=== PATIENT | male | born 1995 | race African-American/Black ===

== ENCOUNTER 2018-11-07 00:07 | Emergency (ER) | payer OTHER ==
[~2018-11-07] VITALS: Ht 167.6 cm; Wt 64.9 kg
[2018-11-07] MEDS ORDERED: IBUPROFEN 400400 M2 PO (00:30)
[2018-11-07 00:49] VITALS: BP 169/103
== END 2018-11-07 00:50 | disposition home or self-care (01) ==
LOC: ER 00:07
DX: S93.491A Sprain of other ligament of right ankle, initial encounter (principal); F17.210 Nicotine dependence, cigarettes, uncomplicated; W01.0XXA Fall on same level from slipping, tripping and stumbling without subsequent striking against object, initial encounter; Y93.51 Activity, roller skating (inline) and skateboarding; Y92.89 Other specified places as the place of occurrence of the external cause; Y99.8 Other external cause status

== ENCOUNTER 2020-03-14 17:53 | Inpatient (IN) | payer OTHER ==
[~2020-03-14] VITALS: Ht 152.4 cm; Wt 66.2 kg
[~2020-03-14 17:53] MED LIST: IBUPROFEN 400400 M2 PO
[2020-03-14 17:54] VITALS: BP 171/110
[2020-03-14 18:28] LABS: HEMATOCRIT 43.4 % (42.0-52.0); HEMOGLOBIN 14.9 gm/dL (14.0-18.0); MCHC 34.4 g/dL (28.0-37.0); PLATELET COUNT 137 thou/uL (150-400); RBC 4.53 mil/uL (4.50-6.00); RDW 14.1 % (10.5-14.5); WBC 4.5 thou/uL (4.0-11.0)
[2020-03-14 18:34] LABS: ANION GAP 17 mmol/L (7-16); BUN 7 mg/dL (7-18); CALCIUM 9.4 mg/dL (8.5-10.1); CHLORIDE 96 mmol/L (98-107); CO2 23 mmol/L (21-32); CREATININE 1.2 mg/dL (0.7-1.3); GLUCOSE 181 mg/dL (74-106); POTASSIUM 3.2 mmol/L (3.5-5.1); SODIUM 136 mmol/L (136-145)
[2020-03-14 18:44] LABS: ALBUMIN 4.4 g/dL (3.4-5.0); DIRECT BILIRUBIN 0.4 mg/dL (<0.1-0.2); MAGNESIUM 1.2 mg/dL (1.8-2.4); PHOSPHORUS 2.5 mg/dL (2.5-4.9); SGOT 266 U/L (15-37); SGPT 204 U/L (30-65); TOTAL BILIRUBIN 1.7 mg/dL (0.2-1.0); TOTAL PROTEIN 8.4 g/dL (6.4-8.2); TROPONIN-I <0.06 ng/mL (<0.06)
[2020-03-14 18:56] LABS: ABSOLUTE NEUTROPHILS 2.8 thou/uL (1.4-8.2); PLATELET ESTIMATE NORMAL
[2020-03-14 20:53] VITALS: BP 171/110
[2020-03-14 21:00] VITALS: BP 145/87
--- NOTE | 2020-03-14 21:02 | NUR ---
ED NURSE CALLED TO GIVE REPORT, WAS TOLD THE NURSE IS NOT THERE.
[2020-03-15] VITALS (10 sets, daily range): BP systolic 128–163; BP diastolic 93–113
--- NOTE | 2020-03-15 01:02 | NUR ---
PT NEW ADMIT FROM ER YESTERDAY, ABOUT 2129 FOR ETOH WITHDRAWAL. AOX4. VSS. LUNGS CLEAR. PT REPORTS DRINKING DAILY AND ALSO SMOKING DAILY. INITIAL EKG STRIP SHOWS SR, PT DENIES ANY NAUSEA VOMITING, OR CHEST PAIN. PT SCORED A 4 ON ALCOHOL WITHDRAWAL ASSESSMENT WITH TREMORS THE ONLY EVIDENT SYMPTOMS. PT ORIENTED TO ROOM, CALLING SYSTEM, AND ALSO BED PADDED SEIZURE PRECAUTIONS. PT ADMITTED IN A STABLE CONDITION. USES URINAL AND CALLS APPROPRIATELY. WITH CONTINUE TO MONITOR, ASSESS, AND FOLLOW POC. ALL OTHER ASSSESSMENTS DOCUMENTED.
[2020-03-15 05:23] LABS: CALCIUM 8.8 mg/dL (8.5-10.1); CREATININE 0.8 mg/dL (0.7-1.3)
[2020-03-15 05:27] LABS: POTASSIUM 2.9 mmol/L (3.5-5.1)
--- NOTE | 2020-03-15 08:34 | EKG ---
[facility] [place] [address] ELECTROCARDIOGRAM REPORT Name: ALEXANDRU LUA Room #: 206-P ADM IN M.R.#: [id number] Admission: 03/14/20 Attend Phys: Solo Belcher Discharge: Date of : [birth year] Report #: [id number] THIS REPORT FOR: cc: BENITO - Valerie family physician/PCP BENITO - Valerie family physician/PCP Willian Prieto MD [facility] THIS REPORT FOR: //name// [facility] ED Test Date: 2020-03-14 Test Time: 19:06:29 Pat Name: ALEXANDRU LUA Department: Room: [facility] Gender: M Vehicle And Equipment Cleaner: LELE : 1995 Requested By: Moi Villavicencio Order Number: [id number] MD: Willian Prieto Measurements Intervals [place] Rate: 91 P: 18 MO: 212 QRS: 27 QRSD: 96 T: 29 QT: 356 QTc: 439 Interpretive Statements Sinus rhythm Prolonged MO interval Borderline ST elevation, anterolateral leads Baseline wander in lead(s) V6 No previous ECG available for comparison Electronically Signed On 03-15-2020 8:32:44 CDT by Willian Prieto [email or web address] <ELECTRONICALLY SIGNED> By: Willian Prieto MD, FACC 03/15/20 0832 1906 1906 Willian Prieto MD, [facility]IN [facility] /EPI
--- NOTE | 2020-03-15 11:44 | NUR ---
Received awake on bed. Due medications given as prescribed, able to swallow meds w/o difficulty. On room air. Vital signs stable. On regular diet- tolerating well; no nausea, no vomiting and no abdominal pain noted. On heart monitoring- SR-ST at times; no complaints of chest pain, heaviness or crushing sensation noted. On seizure precautions. CIWA monitoring done. With NS + 20meq KCL at 125cc/hr, infusing well at R AC. Assisted in ADLs. No complaints of pain. Pt able to talk to his most of the day. A+Ox4. To continue monitoring patient.
--- NOTE | 2020-03-15 16:20 | NUR ---
spoke with patient via phone. Patient admits with seizure?ETOH abuse. SP with patient regarding ETOH use he reports approx a pint a day. Patient reports he does work but at this time due to COVID at home but not working from home. Patient and interest in ETOH options. Alerted to patient informaton in his dc orders. Alerted many options of outpatient and online support. Patient recentive to discussion of resouces and options. Alerted to patient he needs to call as they complete assessments with patient over the phone.
[2020-03-16] VITALS (36 sets, daily range): BP systolic 128–184; BP diastolic 80–117
[2020-03-16 00:07] LABS: GLYCOHEMOGLOBIN (HGB A1C) 5.1 % (4.8-5.6)
--- NOTE | 2020-03-16 01:59 | NUR ---
PT CIWA SCORE ELEVATED FROM MNOC SCORE 2 HRS PREVIOUSLY, PT REFUSING MEDS, DID AGREE TO LEAVE IN IV AND HEART MONITOR, HR ST LOW 100'S, BP STILL ELEVATED AFTER PRN HYDRALAZINE GIVEN @159/113, NO FEVER, NO SWEATS, PT RESTING QUIETLY, WILL MONITOR CLOSELY PER PPOC.
--- NOTE | 2020-03-16 05:05 | NUR ---
PT AWOKE APPROXIMATLY 0400, PULLED OUT IV, OUT OF BED WITH ALARM GOING OFF MET AT THE DOOR, SAID HE JUST NEEDED TO GO FOR A WALK, 2ND RN WALKED WITH PT AND HE RAN DOWN THE HART SECURITY CALLED AND PT HAD NEW IV PUT IN IN ER AND RETURNED TO ROOM PRN ATIVAN GIVEN, VSS HR ST, NO C/O PAIN, PT RESTING QUIETLY IN ROOM. WILL CON'T TO MONITOR PER PPOC.
--- NOTE | 2020-03-16 07:16 | NUR ---
ARRIVED INTO UNIT W ABEL MONTERO.MEN & SECURITY AT PT'S BEDSIDE.PT IN 4 PT LOCK DOWN RESTAINTS,REARING UP FROM BED,SLIDING DOWN,TRYING TO BITE THRU RESTRAINTS,ALMOST TIPPED OVER BED...-VW ONE ARM GOTTEN FREE DESPITE EFFORTS OF SECURITY.SPOKE W BHAVNA,STUDENT LIAISON OFFICER-ORDERS NOTED.--VW PRECEDEX STARTED, ATIVAN GIVEN W/O ANY EFFECT, GEODAN GIVEN & PT SLEEPING BUT DOES WAKE SPONT,REARS UP,WILD. PT TACHYCARDIC-VW 'S MARLA & FRANCISCA REFUSE TO INTUBATE PT AT THIS TIME.--VW
--- NOTE | 2020-03-16 07:24 | NUR ---
PT BECAME MORE AND MORE CONFUSED, PRN MEDS NOT WORKING, PT REFUSING IV TO BE RESTARTED, TELEMETRY OFF, SECURITY CALLED PT BECAME BELIGERANT THOUGHT WE WERE TRYING TO HURT HIM UNABLE TO REORIENT PT, NOT FOLLOWING DIRECTIONS, Lupillo PALMER NOTIFIED OF WORSENING CONDITION ORDERS RECEIVED TO TRANSFER TO ICU REPORT GIVEN TO RN AND PT PLACED IN ROOM 248.
[2020-03-16 09:34] LABS: CREATININE 0.5 mg/dL (0.7-1.3); MAGNESIUM 1.1 mg/dL (1.8-2.4)
[2020-03-16 10:11] LABS: CALCIUM 6.8 mg/dL (8.5-10.1); POTASSIUM 2.5 mmol/L (3.5-5.1)
[2020-03-16 11:40] LABS: AMP/METHAMP Negative (Negative); BARBITURATES Negative (Negative); BENZODIAZEPINES POSITIVE (Negative); COCAINE Negative (Negative); METHADONE Negative (Negative); OPIATES Negative (Negative); PCP Negative (Negative)
--- NOTE | 2020-03-16 14:45 | NUR ---
Patient's , Jose called in and updated on her 's status.
--- NOTE | 2020-03-16 15:15 | NUR ---
SW reviewed chart and spoke with attending physician. Pt was transferred to ICU from earlier today. Pt placed in restraints. Pt with hx of ETOH use. CHAU is following to assist as needed with discharge planning.
--- NOTE | 2020-03-16 16:55 | NUR ---
PATIENT SITTING UP IN BED, TALKING IN A LOUD VOICE AND SCOOTING SELF TO THE BOTTOM OF THE BED, REASSURANCE GIVEN AND ATTEMPTED TO REORIENT TO PLACE AND SITUATION, CALLING STAFF LIERS, CUSSING AT STAFF. STATES THAT HE WANTS TO KILL THE BITCH. SECURITY NOTIFIED. PATIENT CONTINUED TO SCOOT DOWN IN THE BED. KNOCKING OVER THE IV POLE WITH 4 PUMPS ON IT. IV LINE NOTED TO BE INTACT. SECURITY HERE TO ASSIST WITH APPLICATION OF RESTRAINTS TO BILATERAL WRIST. GRABBED THIS NURSES UNIFORM TOP, PINCHING THIS NURSE AND HAND WAS RELEASED WITH THE ASSISTANCE OF THE SECURITY GUARDS. STATES THAT HE IS GOING TO KILL PEOPLE. ATIVAN GIVEN, VERSED DRIP AND PRECEDEX INCREASED.
--- NOTE | 2020-03-16 17:22 | NUR ---
PATIENT NOW SLEEPING, BP ELEVATED AND HYDRALAZINE GIVEN PER ORDER.
--- NOTE | 2020-03-16 17:40 | NUR ---
PATIENT'S SANDRA CALLED IN AND UPDATED TO PATIENT'S STATUS. STATED THAT SHE WANTED TO BE CALLED SOON HE HAS AN OUTBURST HE IS ALL ALONE AND SHE CANNOT BE WITH HIM. REASSURED THAT WE WOULD CALL HER SOON POSSIBLE BUT WE NEEDED TO CARE FOR HER AND PROVIDE A SAFE ENVIROMENT FOR HIM.
[2020-03-16 18:51] LABS: MAGNESIUM 2.2 mg/dL (1.8-2.4); POTASSIUM 4.2 mmol/L (3.5-5.1)
--- NOTE | 2020-03-16 19:00 | NUR ---
Patient resting at present. Remains on Versed and Precedex. Ativan given for CIWA of 13. Serum potassium and Mag levels drawn, awaiting results. Dr Belcher informed of patient status, medications reviewed with him. Orders noted. Monitor showing NSR. Diastolic BP remains elevated. Reese patent. Will continue to monitor. Slow progressing towards outcome goals.
--- NOTE | 2020-03-16 20:26 | NUR ---
Spoke with pt's and updated on POC. Pt upset re: lack of communication. Stated that she now felt much more informed and would appreciate providers taking the time to explain things to her. Reassured her that I would pass this along. Pt released from violent restraints at 1999 with first assessment. Precedex at 1.4 mcg/kg/hr, Versed at 2 mg/hr and pt still arouses when this junior underwriter is in the room. Resps even and unlabored, no seizure activity noted. Side rails padded, bed alarm activated for patient safety.
[2020-03-17] VITALS (59 sets, daily range): BP systolic 100–140; BP diastolic 69–98
--- NOTE | 2020-03-17 05:08 | NUR ---
Pt has slept intermittently through the noc on Precedex 1.4 mcg/kg/hr, Versed 3 mg/hr and prn Haldol & Ativan per EMAR. Pt easily arouses and quickly becomes agitated, confused and combative. Resps even/non labored on RA, NSR per tele. Adequate UOP per butler. 4-point soft restraints in place for patient safety. Pt's updated through the noc. Not progressing towards discharge goals at this time.
[2020-03-17 06:44] LABS: HEMATOCRIT 34.4 % (42.0-52.0); MCH 29.1 pg (26.0-34.0); MCHC 32.8 g/dL (28.0-37.0); RBC 3.88 mil/uL (4.50-6.00); RDW 15.3 % (10.5-14.5)
[2020-03-17 06:55] LABS: HEMOGLOBIN 11.3 gm/dL (14.0-18.0); MCV 88.7 fL (80.0-100.0)
[2020-03-17 06:57] LABS: CALCIUM 8.7 mg/dL (8.5-10.1); CREATININE 0.8 mg/dL (0.7-1.3); MAGNESIUM 1.6 mg/dL (1.8-2.4); POTASSIUM 3.8 mmol/L (3.5-5.1); TOTAL BILIRUBIN 0.5 mg/dL (0.2-1.0); TOTAL PROTEIN 6.7 g/dL (6.4-8.2)
--- NOTE | 2020-03-17 09:57 | NUR ---
ASSESSMENTS AND INTERVENTIONS DOCCUMENTED. RN ASSUMED CARE AT 0700. PATIENT ON VERSED AND PRECEDEX GTT. CALLING, SOUNDED UPSET BECAUSE NO ONE HAS BEEN KEEPING HER UPDATED. DOES NOT BELIVE PATIENT IS WITHDRAWLING FROM ALCOHOL, THAT PATIENT ALWAYS TREMMORS AND HAS SWEATS. BELIEVES THAT THE PATIENT HAD AN HYPERTENSIVE EPISODE THAT CAUSED HIM TO SEIZE. STATING " HE HAD SHRIMP FROM [employer] THAT HAS A LOT OF SODIUM AND HE ATE NOODLES". WANTING TO SPEAK WITH PHSYCIAN. DR YAÑEZ TO BE PAGED TO CALL .
--- NOTE | 2020-03-17 16:51 | NUR ---
SW reviewed chart and spoke with attending physician. Pt remains in restraints. Psych and neuro following. Pt is in restraints. Pt's family to meet with physician this afternoon around 1600 to discuss plan of care. No weekend discharge planned. [employer] to follow up with pt/family as pt does not have health insurance. SW is following to assist as needed with discharge planning.
--- NOTE | 2020-03-17 21:00 | NUR ---
PT WOKE UP AGITATED,IMPULSIVE,SWEATING AND ALSO HALLUCINATING,CIWR SCORE TO 33,PATIENT ON SEDATION PER ORDERS.TREATED PER CIWR PROTOCOL WITH LORAZEPAM AND HALDOL.VSS,TACHYPNEIC.O2 SAT AT 100% N RA.PT FINALLY WAS ABLE TO CALM DOWN AND FALL ASLEEP. CALLED AND UPDATED WITH CARE.WILL CONT TO MONITOR PER POC.
[2020-03-18] VITALS (39 sets, daily range): BP systolic 114–166; BP diastolic 56–110
[2020-03-18 04:06] LABS: CALCIUM 8.3 mg/dL (8.5-10.1); CREATININE 0.8 mg/dL (0.7-1.3)
[2020-03-18 05:13] LABS: POTASSIUM 4.2 mmol/L (3.5-5.1)
--- NOTE | 2020-03-18 18:21 | NUR ---
NEW ORDER OBTAINED TO MANAGE ELEVATED HR. WILL GIVE MED AND NOTIFY NIGHT NURSE OF ORDERS TO FOLLOW IF MEDICATION INEFFECTIVE.
--- NOTE | 2020-03-18 18:44 | NUR ---
ASSUMED CARE APPROX 0700. PT SEDATED AT START OF SHIFT, BUT EASILY AROUSABLE. ONCE PT WAS WOKE HE WAS ALERT AND ORIENTED TO SELF AND TIME. AND MOTHER UPDATED ON STATUS. PT HAS SPOKEN TO SEVERAL TIMES THIS SHIFT. CIWA MANAGED PER ORDERS. BECAME FEBRILE AND DR. YAÑEZ NOTIFIED. FEVER TREATED. PT HAS NOT BEEN COMBATIVE OR AGGRESSIVE THIS SHIFT. RESTRAINTS REMOVED AT 1700. ELEVATED BP TREATED PER ORDERS. PT RESTING COMFORTABLY.
[2020-03-19] VITALS (26 sets, daily range): BP systolic 125–1141; BP diastolic 57–123
--- NOTE | 2020-03-19 05:53 | NUR ---
ASSUMED PT CARE AT 1900. HR IN 130S AND SUSTAINING. DAY NURSES RELAYED INFO REGARDING CALLING THE HOSPITALIST LEATHER SCRUBBER AT 2030 IF HR IS STILL SUSTAINING IN 130S. JASPREET SPENCER CALLED REGARDING HR AND HTN AT 2100 ONETIME ORDER OF METOPROLOL RX AND ADM. HR AND BP CAME DOWN. TO 100S. PT WAS ON VERSED GTT AND UNRESTRAINED AT THE TIME WHEN CARE WAS ASSUMED. HE WAS FOLLOWING COMMANDS AND WAS COMPLIANT WITH CARE INSTRCUTIONS. ATIVAN AND HALDOL GIVEN PRN WITH CIWA SCORE DONE Q2-Q4 DEPENDING ON SCORE. AROUND 04OO, PT BECAME BELIGERENT, ALMOST KICKED RN IN THE ABDOMEN, WAS ADAMANT THAT HE WANTED TO LEAVE TO GO SEE HIS SON, WAS YELLING INAPPROPRIATE WORDS AT RN ALSO STATED "YOU HAVE BEEN TRYING TO KILL ME, I AM GOING TO KILL YOU." SECURITY NOTIFIED OF PATIENT'S BEHAVIOR, PREDEX STARTED ON PT AT 1.4MCG. PT FINALLY FELL ASLEEP AT 0605AM. PT IS CURRENTLY STABLE, WILL CONTINUE TO CLOSELY MONITOR.
--- NOTE | 2020-03-19 11:52 | NUR ---
A LEFT UPPER ARM MIDLINE WAS PLACED FOR ADDITIONAL IV ACCESS PER HOSPITAL POLICY. LINE WAS TRIMMED TO 15CM AND ADVANCED WITHOUT DIFFICULTY. RELEASED FOR USE
--- NOTE | 2020-03-19 12:15 | NUR ---
PT HR DROPPING TO LOW 30S. STAT EKG OBTAINED. TITRTATING DOWN ON PRECEDEX. DR. PARI JEWELL. PT REMAINS SEDATED.
--- NOTE | 2020-03-19 12:45 | NUR ---
DR. YAÑEZ PAGED AGAIN WITH NO RESPONSE. PRECEDEX TURNED OFF DUE TO BRADYCARDIA. PT STARTING TO WAKE UP. VERSED IS ALSO OFF.
--- NOTE | 2020-03-19 13:15 | NUR ---
DR. ESPINOSA HERE. REPORTED BRADYCARDIA WITH PRECEDEX. PT BELLIGERENT NOW, CRAWLING OUT OF BED AND ATTEMPTING TO KICK STAFF. VERSED RESTARTED AT 10MG/HR PER DR ESPINOSA. ALSO SAID TO USE ATIVAN PER THE [facility] PROTOCOL.
--- NOTE | 2020-03-19 13:42 | NUR ---
ASSUMED CARE AT CHANGE OF SHIFT. PT SEDATED WITH DRIPS ON VERSED AND PRESIDX. LIBRIUM PO ORDERS BY DR YAÑEZ. HEART RATE DROPPING IN THE 30'S TITRATED VERSED AND PRECEDX DOWN THEN STOPPED APPROXIMATELY 1300. PT AWAKENED AND BECAME COMBATIVE WITH NURSING STAFF, SECURITY CALLED IN. DR ESPINOSA BEDSIDE ORDERED VERSED BE RESTARTED AND GIVE LORAZAPAM PER CIWA SCORE. PT REFUSED TO TAKE LIBRIUM. CHARGE NURSE BEDSIDE ASSISTING WITH PT ORRIENTATION AND UPDATED PT'S SIGNIFICANT OTHER ON STATUS.PT SPOKE WITH SIGNIFICANT OTHER. PT REMAINS IN BILATERAL WRIST RESTRAINTS.
--- NOTE | 2020-03-19 16:30 | NUR ---
DR. ESPINOSA CALLED. RE PT CRAWLING OUT OF BED, KICKING ETC DESPITE VERSED AT 10M/HR AND ATIVAN AND HALDOL. ORDERS GIVEN TO RESTART PRECEDEX AND INCREASE VERSED TO 15-20MG/HR NEEDED. STATES TO ALSO USE HALDOL AND ATIVAN ORDERED.
--- NOTE | 2020-03-19 20:32 | NUR ---
ATTEMPTED VACATION SEDATION BY HALTING VERSED AND PRECEDEX. PT RAPIDLY STARTING PULLING AT ITEMS, ATTEMPTING TO GET OUT OF BED, CUSSING AND YELLING. UNABLE TO REDIRECT THAT HE WAS IN THE HOSPITAL. "I GOT TO GET GOING. BABY!!!" "GET THE FUCK OUT OF MY HOUSE." ONLY ORIENTED TO NAME. NOTED HEART RATE IN THE 30'S WITH PRECEDEX AND 0.8 MCG/KG/MIN AND VERSED AT 10MG/HR. (PRECEDEX JUST DECREASED FROM 1MCG/KG/MIN APPROX 1 HOUR EARLIER BY DAY RN. HAVE NOW RESUMED PRECEDEX AT 0.6MCG/KG/MIN AND VERSED TO 8MG/HR.
[2020-03-20] VITALS (42 sets, daily range): BP systolic 131–204; BP diastolic 67–120
[2020-03-20 04:47] LABS: CALCIUM 8.7 mg/dL (8.5-10.1); CREATININE 0.7 mg/dL (0.7-1.3); POTASSIUM 3.7 mmol/L (3.5-5.1)
--- NOTE | 2020-03-20 06:24 | NUR ---
PT MAKING SLOW PROGRESS TOWARDS GOALS. UPON INITIAL ASSESSMENT PT ONLY ORIENTED TO HIS NAME. VERSED GTT AT 10MG/HR AT START OF SHIFT. TITRATED DOWNWARD AND REACHED GTT TO "OFF" BY 2335HRS. PRECEDEX GTT AT 1.4MCG/KG/HR AT THE START, GRADUALLY DECREASING TO JUST 0.6MCH/KG/HR. THIS AM, PT WAS ORIENTED TO NAME AND "[place]." EARLY IN THE NIGHT PT WOULD CUSS AND SCREAM AT STAFF PERFORMING CARE, EVEN SEEMING GUARDED AND FEARFUL OF STAFF. THIS AM, PT IS MORE CALM AND BETTER ABLE TO BE REDIRECTED. HE DID SAY "ASK ME ANYTHING, I'M BETTER." WHEN ASKED "WHY ARE YOU HEAR IN THE HOSPITAL?" HE REPLIED WITH "ALCOHOL." HE WAS THEN ASKED "CAN YOU BE MORE SPECIFIC?" HE REPLIED WITH "YEA, I WAS ABUSING IT." SEE CIWA SCORES, ATIVAN BOLUS DOSES PER SCORE. NOTED TO BE BRADYCARDIC AT TIMES WHEN ASLEEP WITH IRREGULAR HEART RHYTHM AND RATE IN 30'S. EXACT RHYTHM IS DIFFICULT TO ASCERTAIN BUT ITS BRADYCARDIC, NARROW COMPLEX WITH IRREGULAR R-R INTERVALS AT TIMES AND OCCASIONAL p WAVES WITH NO FOLLOWING QRS COMPLEX. THIS RHYTHM WILL CEASE AND BE FAR MORE REGULAR WITH PT BEING AWAKE. ALSO NOTED PT HAS FREQUENT APNEA EPISODES THAT CAN BE OBSERVED BY VIEWING THE RESPIRATORY TRACING AND DIRECT OBSERVATION. PT CAN OSCILLATE FROM TACHYPNEA, TO APNEA AND BACK WITH INTERMITTENT SNORING. SPOKE WITH WHOM COMFIRMED THAT SHE HAS BEEN WITNESS TO IRREGULAR BREATHING PATTERN WHEN HE SLEEPS.
--- NOTE | 2020-03-20 08:22 | EKG ---
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: ZACH : 1995 Requested By: Solo Belcher Order Number: [id number] MD: Willian Prieto Measurements Intervals [place] Rate: 33 P: 31 VT: 189 QRS: 20 QRSD: 96 T: 40 QT: 561 QTc: 416 Interpretive Statements Sinus bradycardia with Mobitz type I heart block Nonspecific T wave abnormality Compared to ECG 03/14/2020 19:06:29 Mobitz type I heart block is now present Electronically Signed On 03-20-2020 8:20:26 CDT by Willian Prieto [email or web address] <ELECTRONICALLY SIGNED> By: Willian Prieto MD, [facility] 03/20/20 0820 1227 1227 Willian Prieto MD, [facility] /EPI
--- NOTE | 2020-03-20 09:43 | NUR ---
Nutrition: Pt NPO x 5 days in ICU. Nsg reports requiring sedation and not responding well when off. Combative. Plans to address diet advance today, otherwise RD would rec considering change IVFs to PPN til able to take po.
--- NOTE | 2020-03-20 16:28 | NUR ---
SW reviewed chart and spoke with nursing and attending physician. Pt remains sedated and in restraints. In ICU. Psych/neuro following. Pt with hx of ETOH abuse. SW is following to assist as needed with discharge planning.
--- NOTE | 2020-03-20 18:30 | NUR ---
PATIENT HAS SLEPT ON AND OFF THROUGH THE DAY. DC/ED VERSED AND REDUCED PRECEDEX TO 0.4ML/HR. PATIENT IS SUFFICIENTLY AWAKE TO MAKE CALLS TO AND ALSO CONVERSE WITH NURSE. PT HAS BEEN PLEASANT THROUGH THE DAY. BP HAS REMAINED HIGH WITH NUMEROUS TREATMENT. WILL CONT WITH PLAN OF CARE.
--- NOTE | 2020-03-20 18:41 | EEG ---
[facility] [place] [address] ELECTROENCEPHALOGRAM Name: ALEXANDRU LUA Room #: [facility] IN M.R.#: [id number] Admission: 03/14/20 Attend Phys: Solo Pretty Discharge: Date of : 89 Report #: [id number] THIS REPORT FOR: //name// CC: BENITO physician/PCP Solo Belcher DATE OF SERVICE: 03/18/2020 This patient is being evaluated for the possibility of seizure. EEG is done to evaluate the patient for seizure. EEG was done by placing the electrode by standard 10-20 system of electrode placement. Both referential and sequential montages were used for recording. Background activity in this patient's EEG is about 9 Hz and 30 microvolt. This patient became drowsy and that is associated with bilateral slowing and vertex sharp waves. Photic stimulation is unremarkable. Throughout the record, no active epileptiform activity was noticed. IMPRESSION: This patient's EEG is intermixed with some theta range slowing on both sides. That has a nonspecific finding, which can occur with effect of psychotropic medication, dementia, encephalopathy, etc. Clinical correlation is recommended. <ELECTRONICALLY SIGNED> By: Senthil Ji MD 03/20/20 1841 1138 1154 Senthil Ji MD /nt
[2020-03-21] VITALS (35 sets, daily range): BP systolic 140–218; BP diastolic 74–118
--- NOTE | 2020-03-21 04:23 | NUR ---
PATIENTS CARES WERE ASSUMED AT SHIFT CHANGE. PATIENT WAS ASSESSED AND MEDS WERE PASED. RESTRAINTS WERE CHECK 2Q HOURS AND DOCUMENTED. PATIENT DID HAVE AN EPISODE OF A HEART RAT OF 155 AND HE HAD SEVER TREMORS. A SEDATIVE FROM THE DEC WAS GIVEN ALONG WITH A SEVERAL HOT BLANKETS BECAUSE HE STATED HE WAS VERY COLD. ROURLY ROUND DONE THE BED IS IN A LOW AND LOCKED POSITION.
--- NOTE | 2020-03-21 12:57 | NUR ---
ASSUMED CARE @ 0700 03/21/20, PT ASSESSMENTS AND VSS COMPLETE PER ICU PROTOCOL AND DOCUMENTED. DR YAÑEZ HERE TO ROUND THIS AM, INFORMED ABOUT SBP IN 180'S OVER THE NIGHT, NEW ORDERS RECIEVED. PT STILL ON PRECEDEX GTT,AXOX4, PT ABLE TO FOLLOW COMMANDS , RESTRAINTS DC'D @ 1147, NO COMPLICATIONS NOTED. SANDRA LUA UPDATED ON STATUS AFTER CODE VERIFIED. WILL CONT TO MONITOR.
--- NOTE | 2020-03-21 15:34 | NUR ---
SW reviewed chart and spoke with attending physician. Pt is out of restraints. Psych following. SW is following to assist as needed with discharge planning.
[2020-03-22] VITALS (25 sets, daily range): BP systolic 114–174; BP diastolic 60–113
[2020-03-22 05:26] LABS: CALCIUM 8.5 mg/dL (8.5-10.1); CREATININE 0.7 mg/dL (0.7-1.3); MAGNESIUM 1.2 mg/dL (1.8-2.4); POTASSIUM 3.3 mmol/L (3.5-5.1); TOTAL BILIRUBIN 0.5 mg/dL (0.2-1.0)
--- NOTE | 2020-03-22 05:26 | NUR ---
SLEPT PART OF SHIFT. CIWA 4-9 THIS SHIFT WITH ATIVAN GIVEN PRN. TURNS SELF IN BED WITHOUT PROBLEMS. A/O X4, MILD ANXIETY AND REMAINS COOPERATIVE. TREMORS LESS THIS AM, BUT REMAINS SHIVERING AND COLD. STATES HAS BEEN SHIVERING AND COLD FOR A COUPLE OF DAYS. WARM BLANKET APPLIED. WORKING ON GOALS AND PLAN OF CARE FOR NOC. PROGRESSING SLOWLY TOWARDS DISCHARGE GOALS FROM ICU. DENIES COMPLAINTS OF PAIN. TALKED WITH FAMILY AND FRIENDS PER CELLPHONE ON AND OFF THIS SHIFT. CONTINUE TO ASSES CLOSELY.
[2020-03-22 05:27] LABS: ALBUMIN 2.5 g/dL (3.4-5.0); TOTAL PROTEIN 6.3 g/dL (6.4-8.2)
--- NOTE | 2020-03-22 09:05 | NUR ---
PATIENT DISCONNECTED FROM PRECEDEX PRIOR TO THIS SHIFT. DROWSY FOR FIRST PART OF THIS MORNING. AOX4 AT THIS TIME. PATIENT SITTING UPRIGHT IN BED, FINISHED BREAKFAST AND SPEAKING WITH SPOUSE ON HIS CELL PHONE. BEHAVIOR IS APPROPRIATE AND PLEASANT. PT CONTINUES TO EXHIBIT TREMORS, CEWA SCORE=4 AT THIS TIME. PT STATES HE WOULD LIKE TO GET UP AND MOVE AROUND MORE THIS SHIFT, PT ORDERS IN PLACE. PATIENT USES OWN STRENGTH TO MOVE SELF AROUND IN BED, BECOMES TACHYCARDIC WITH ACTIVITY, HR 116, TOLERATES WELL. NO S/S OF DISTRESS NOTED. FALL PRECAUTIONS REMAIN IN PLACE, PATIENT CALLS FOR ASSIST APPROPRIATELY.
--- NOTE | 2020-03-22 16:25 | NUR ---
CHAU reviewed chart and spoke with nursing and attending physician. Pt is progressing towards goals for discharge. Discharge is anticipated for Friday. PT/OT ordered today to evaluate pt. CHAU spoke with pt via phone. Psych had seen pt earlier today and states pt is interested in inpt ETOH treatment. Pt is alert/orientated x 4. Pt states he is interested in looking at programs with [facility]. CHAU faxed info to the ICU to provide to pt. CHAU is following to assist as needed with discharge planning.
[2020-03-23] VITALS (20 sets, daily range): BP systolic 120–174; BP diastolic 67–119
--- NOTE | 2020-03-23 03:20 | NUR ---
ASSUMED CARE OF PATIENT AT 1900. ALERT, PLEASANT, COOPERATIVE. REMAINS OFF PRECEDEX. UP TO CHAIR FOR BATH, ABLE TO AMBULATE TO COMMODE IN BEDROOM WITH THIS RN AND GAITBELT. STILL UNSTEADY, BUT NOT WEAK. ALCOHOL CESSATION WELL TOBACCO CESSATION DISCUSSED. EDUCATION ABOUT BLOOD PRESSURE AND HEART RATE GIVEN, VERBALIZED UNDERSTANDING. PROGRESSING WELL TOWARDS POC GOALS.
--- NOTE | 2020-03-23 11:33 | NUR ---
PATIENT OUT OF BED, INDEPENDENTLY PERFORMING HYGIENE CARE WITH HELP FROM OT. HR INCREASED TO 163bpm WITH ACTIVITY. ON ASSESSMENT PATIENT STATES "I FEEL FINE", NO VISIBLE DISTRESS NOTED; DENIES FEELING SOA OR DIZZINESS. WILL CONTINUE TO MONITOR.
--- NOTE | 2020-03-23 14:43 | NUR ---
CHAU reviewed chart and spoke with attending physician. Pt remains in ICU. May transfer out when a bed becomes available. Discharge home is anticipated for tomorrow. CHAU faxed [facility] and [facility] handbook to nursing unit to provide to pt. CHAU spoke with pt via phone to provide update. Pt has not received ppwk yet. Pt is aware that he will discharge home tomorrow. SW offered to update his . Pt states she is aware of the plan at this time. CHAU is following to assist as needed with discharge planning.
[2020-03-24 00:13] VITALS: BP 129/59
[2020-03-24 03:54] VITALS: BP 129/63
--- NOTE | 2020-03-24 04:55 | NUR ---
PT TRANSFERRED FROM ICU YESTERDAY FROM ICU. ALERT AND ORIENTED. STILL ON CIWA PROTOCAL, SCORING 4-5. DENIES HALLUSINATION, OR SWEATING. VISIBLE SHAKINESS AND ALSO WHILE ARMS EXTENDED. ATIVAN PO AND HALDOL GIVEN X 1 EACH. PT GETS TACHY WITH ACTIVITIES SUSTAINING IN 120s AT SOME POINT. WELL SERVICE PUMP EQUIPMENT OPERATOR NOTIFIED, NO NEW ORDERS RECEIVED. PT ANTICIPATES TO DC TODAY. WILL CONTINUE TO FOLLOW POC.
[2020-03-24 07:15] VITALS: BP 113/53
[2020-03-24] MEDS ORDERED: VITAMIN B-1100 M2 PO (08:43)
[2020-03-24] MEDS ORDERED: CHLORDIAZEPOXID25 M1 PO (08:43)
[2020-03-24] MEDS ORDERED: CATAPRES0.1 MG PO (08:43)
[2020-03-24 10:13] VITALS: BP 138/97
--- NOTE | 2020-03-24 10:37 | NUR ---
ASSUMED CARE AT SHIFT CHANGE, ALERT AND ORIENTED X4. DENIES ANY DISCOMFORT. S/B MARJARA DISCHARGE AND MEDICATION INSTRUCTIONS GIVEN TO PATIENT AND HE VERBALIZED UNDERSTANDING. PATIENT DISCHAGED HOME.
== END 2020-03-24 10:42 | disposition home or self-care (01) | DRG 897 ==
LOC: ER 17:53 → EROBS 20:27 → ICU 20:27 → 2N 21:19 → ICU 03-16 06:36 → 2N 03-23 17:46
PROVIDERS: Emergency Medicine; Internal Medicine Pulmonary Disease; Nurse Practitioner Family; ADMIT Hospitalist
PROC: 05HC33Z Insertion of Infusion Device into Left Basilic Vein, Percutaneous Approach (ICD-10-PCS; principal; 2020-03-19)
DX: F10.231 Alcohol dependence with withdrawal delirium (principal); E87.2 Acidosis; E87.1 Hypo-osmolality and hyponatremia; I10 Essential (primary) hypertension; F17.210 Nicotine dependence, cigarettes, uncomplicated; R73.9 Hyperglycemia, unspecified; R74.0 Nonspecific elevation of levels of transaminase and lactic acid dehydrogenase [LDH]; E87.6 Hypokalemia; F41.9 Anxiety disorder, unspecified; Z71.6 Tobacco abuse counseling; Z79.899 Other long term (current) drug therapy
CPT/HCPCS: 10078; 10081; 27000

== ENCOUNTER 2020-04-11 19:37 | Emergency (ER) | payer OTHER ==
[~2020-04-11] VITALS: Ht 170.1 cm; Wt 71.2 kg
[~2020-04-11 19:37] MED LIST changes: +CATAPRES0.1 MG PO; +CHLORDIAZEPOXID25 M1 PO; +VITAMIN B-1100 M2 PO
[2020-04-11] MEDS ORDERED: CHLORDIAZEPOXID25 M1 PO (20:27)
[2020-04-11 20:56] VITALS: BP 164/107
== END 2020-04-11 20:57 | disposition home or self-care (01) ==
LOC: ER 19:37
DX: F41.9 Anxiety disorder, unspecified (principal); Z76.0 Encounter for issue of repeat prescription; F17.210 Nicotine dependence, cigarettes, uncomplicated; Z98.890 Other specified postprocedural states; Z79.899 Other long term (current) drug therapy

== ENCOUNTER 2020-09-20 12:03 | Emergency (ER) | payer OTHER ==
[~2020-09-20] VITALS: Ht 167.6 cm; Wt 68.0 kg
[2020-09-20 13:35] LABS: ABSOLUTE NEUTROPHILS 5.8 thou/uL (1.4-8.2); BASOPHILS 0.5 % (0.0-2.0); EOSINOPHILS 0.4 % (0.0-3.0); HEMATOCRIT 42.4 % (42.0-52.0); HEMOGLOBIN 14.6 gm/dL (14.0-18.0); LYMPHOCYTES 7.5 % (24.0-44.0); MCH 34.1 pg (26.0-34.0); MCHC 34.4 g/dL (28.0-37.0); MCV 99.1 fL (80.0-100.0); MONOCYTES 8.9 % (1.0-8.0); PLATELET COUNT 209 thou/uL (150-400); POLYS 82.7 % (36.0-66.0); RBC 4.28 mil/uL (4.50-6.00); RDW 13.8 % (10.5-14.5)
--- NOTE | 2020-09-20 13:46 | EKG ---
[facility] [place] [address] ELECTROCARDIOGRAM REPORT Name: ALEXANDRU LUA Room #: PRE M.R.#: [id number] Admission: Attend Phys: Discharge: Date of : 89 Report #: [id number] THIS REPORT FOR: cc: BENITO Padilla family physician/PCP BENITO Padilla family physician/PCP Omkar Rajput MD [facility] ~ THIS REPORT FOR: //name// [facility] ED Test Date: 2020-09-20 Test Time: 12:13:08 Pat Name: ALEXANDRU LUA Department: Room: Gender: M Highway Design Engineer: [facility] : 1995 Requested By: Sonja Barrios Order Number: [id number] MD: Omkar Rajput Measurements Intervals [place] Rate: 130 P: 77 WA: 139 QRS: 43 QRSD: 81 T: 15 QT: 301 QTc: 443 Interpretive Statements Sinus tachycardia Aberrant complex Baseline wander in lead(s) II,aVF Compared to ECG 03/19/2020 12:27:24 Ventricular premature complex(es) now present Sinus bradycardia no longer present T-wave abnormality no longer present Electronically Signed On 09-20-2020 13:46:31 CHIEF ENGINEER PRODUCTION by Omkar Rajput [email or web address] <ELECTRONICALLY SIGNED> By: Omkar Rajput MD, FACC 09/20/20 1346 1213 1213 Omkar Rajput MD, [facility] /EPI
[2020-09-20 13:54] LABS: CALCIUM 9.5 mg/dL (8.5-10.1); CREATININE 0.9 mg/dL (0.7-1.3); POTASSIUM 3.9 mmol/L (3.5-5.1)
[2020-09-20 14:00] LABS: ALBUMIN 4.2 g/dL (3.4-5.0); TOTAL BILIRUBIN 1.6 mg/dL (0.2-1.0); TOTAL PROTEIN 8.3 g/dL (6.4-8.2)
[2020-09-20 14:04] LABS: MAGNESIUM 0.9 mg/dL (1.8-2.4)
[2020-09-20] MEDS ORDERED: ATIVAN1 M1 PO (15:36)
[2020-09-20 16:01] VITALS: BP 138/82
[2020-09-20 16:21] LABS: AMP/METHAMP Negative (Negative); BARBITURATES Negative (Negative); BENZODIAZEPINES POSITIVE (Negative); COCAINE Negative (Negative); METHADONE Negative (Negative); OPIATES Negative (Negative); PCP Negative (Negative)
== END 2020-09-20 16:04 | disposition left against medical advice (07) ==
LOC: ER 12:03
PROVIDERS: Physician Assistant
DX: F10.239 Alcohol dependence with withdrawal, unspecified (principal); R56.9 Unspecified convulsions; E83.42 Hypomagnesemia; F17.210 Nicotine dependence, cigarettes, uncomplicated; Z79.899 Other long term (current) drug therapy; Y90.0 Blood alcohol level of less than 20 mg/100 ml

== ENCOUNTER 2021-01-23 10:27 | Emergency (ER) | payer OTHER ==
[~2021-01-23] VITALS: Ht 170.2 cm; Wt 65.8 kg
[~2021-01-23 10:27] MED LIST changes: +ATIVAN1 M1 PO
[2021-01-23] MEDS ORDERED: ATIVAN1 M1 PO (13:09)
[2021-01-23 13:10] LABS: ABSOLUTE NEUTROPHILS 5.3 thou/uL (1.4-8.2); BASOPHILS 0.4 % (0.0-2.0); EOSINOPHILS 0.1 % (0.0-3.0); HEMATOCRIT 36.2 % (42.0-52.0); HEMOGLOBIN 12.9 gm/dL (14.0-18.0); LYMPHOCYTES 9.7 % (24.0-44.0); MCH 34.7 pg (26.0-34.0); MCHC 35.5 g/dL (28.0-37.0); MCV 97.7 fL (80.0-100.0); MONOCYTES 9.1 % (1.0-8.0); POLYS 80.7 % (36.0-66.0); RDW 13.8 % (10.5-14.5); WBC 6.5 thou/uL (4.0-11.0)
[2021-01-23 13:24] LABS: ALBUMIN 3.3 g/dL (3.4-5.0); CREATININE 0.8 mg/dL (0.7-1.3); TOTAL BILIRUBIN 3.7 mg/dL (0.2-1.0); TOTAL PROTEIN 6.9 g/dL (6.4-8.2)
[2021-01-23 13:25] LABS: POTASSIUM 2.5 mmol/L (3.5-5.1)
[2021-01-23 13:27] LABS: PLATELET ESTIMATE DECREASED
[2021-01-23 13:28] LABS: LARGE PLATELETS OCCASIONAL; PLATELET COUNT 66 thou/uL (150-400)
[2021-01-23] MEDS ORDERED: KLOR-CON M2020 MEQ PO (13:53)
[2021-01-23 14:07] VITALS: BP 159/96
--- NOTE | 2021-01-23 15:59 | EKG ---
[address] [address] [place] [address] ELECTROCARDIOGRAM REPORT Name: ALEXANDRU LUA Room #: REG LUPE Hicks#: [id number] Admission: 01/23/21 Attend Phys: Discharge: Date of : [birth year] Report #: [id number] [facility] ED Test Date: 2021-01-23 Test Time: 13:41:47 Pat Name: ALEXANDRU LUA Department: Room: Gender: M Emergency Department Clinician: : 1995 Requested By: Omkar Sanchez Order Number: [id number] MD: Omkar Rajput Measurements Intervals [place] Rate: 101 P: -62 [place]: 120 QRS: 21 QRSD: 97 T: 97 QT: 418 QTc: 542 Interpretive Statements Sinus or ectopic atrial tachycardia RSR' in V1 or V2, right VCD or RVH Nonspecific T abnrm, anterolateral leads Prolonged QT interval Compared to ECG 09/20/2020 12:13:08 Right ventricular hypertrophy now present RSR' in V1 or V2 now present Prolonged QT interval now present Sinus tachycardia no longer present Aberrant conduction of supraventricular beat(s) no longer present Electronically Signed On 01-23-2021 15:59:12 CDT by Omkar Rajput [email or web address] <ELECTRONICALLY SIGNED> By: Omkar Rajput MD, [facility] 01/23/21 1559 1341 1341 Omkar Rajput MD, [facility] /EPI
== END 2021-01-23 14:07 | disposition home or self-care (01) ==
LOC: ER 10:27
PROVIDERS: Emergency Medicine
DX: F10.139 Alcohol abuse with withdrawal, unspecified (principal); R56.9 Unspecified convulsions; E87.6 Hypokalemia; F17.210 Nicotine dependence, cigarettes, uncomplicated; Z98.890 Other specified postprocedural states

== ENCOUNTER 2021-04-11 11:50 | Inpatient (IN) | payer OTHER ==
[~2021-04-11] VITALS: Ht 170.2 cm; Wt 66.7 kg
[~2021-04-11 11:50] MED LIST changes: +KLOR-CON M2020 MEQ PO
[2021-04-11 11:55] VITALS: BP 156/105
--- NOTE | 2021-04-11 12:10 | NUR ---
PT IS ALERT AND ORIENTED X4, PT STATES HE NORMALLY DRINKS ABOUT X1 PINT OF VODKA DAILY. PT HAS BEEN ADMITTED FOR SEIZURES IN THIS HOSPITAL IN THE PAST. PT STATES HE IS NOT CURRENTLY ON ANY MEDICATION. PT SPOUSE STATES THE ONLY THING PT HAD FOR HIS SEIZURES AT HOME WAS A PRESCRIPTION WRITTEN FROM THE LAST ED VISIT WHICH HE HAS RAN OUT OF. PT DENIES PAIN. NEUROLOGICALLY INTACT AT THIS TIME. CALL LIGHT ENCOURAGED TO USE
[2021-04-11 12:25] LABS: ABSOLUTE NEUTROPHILS 3.4 thou/uL (1.4-8.2); BASOPHILS 1.3 % (0.0-2.0); EOSINOPHILS 0.8 % (0.0-3.0); HEMATOCRIT 43.3 % (42.0-52.0); HEMOGLOBIN 14.7 gm/dL (14.0-18.0); LYMPHOCYTES 28.5 % (24.0-44.0); MCH 33.6 pg (26.0-34.0); MCV 98.9 fL (80.0-100.0); MONOCYTES 14.1 % (1.0-8.0); POLYS 55.3 % (36.0-66.0); RBC 4.37 mil/uL (4.50-6.00); RDW 14.4 % (10.5-14.5); WBC 6.1 thou/uL (4.0-11.0)
[2021-04-11 12:43] LABS: CALCIUM 8.8 mg/dL (8.5-10.1); CREATININE 1.2 mg/dL (0.7-1.3); POTASSIUM 3.1 mmol/L (3.5-5.1)
[2021-04-11 12:47] LABS: ALBUMIN 3.9 g/dL (3.4-5.0); DIRECT BILIRUBIN 0.6 mg/dL (<0.1-0.2); TOTAL BILIRUBIN 1.6 mg/dL (0.2-1.0); TOTAL PROTEIN 8.1 g/dL (6.4-8.2)
--- NOTE | 2021-04-11 13:30 | NUR ---
ED PROVIDER GOING OVER CARE PLAN WITH PT AND PT SPOUSE TO BE ADMITTED TO THE HOSPITAL AT THIS TIME
[2021-04-11 14:10] LABS: PLATELET COUNT 155 thou/uL (150-400)
--- NOTE | 2021-04-11 16:50 | NUR ---
REPORT GIVEN TO RICHARD RITTER AT THIS TIME. PT TAKEN TO ED ROOM 23 AT THIS TIME
[2021-04-11 17:56] VITALS: BP 136/95
[2021-04-11 18:08] VITALS: BP 130/94
--- NOTE | 2021-04-11 18:48 | NUR ---
ADMISSION NOTE: PT ADMIOTTED AT 1830. PT ALERT AND ORIENTED X4, DENIES ANY CHEST PAIN, NAUSEA AND VOMITTING. ON ROOM AIR, NO SIGNS OF DISTRESS. STEMHOLE BORER AND TOPPER IN PLACED, SR. SEIZURE PRECAUTIONS IN PLACE. ADMISSION HISTORY AND EDUCATION COMEPLETED. PM NURSE DARCY MADE AWARE ABOUT COMPLETEDING REST OF ADMISSION. FALL PRECAUTIONS IN P[LACE. CONSENTS SIGNED BY PT, ORIENTED TO ROOM. PT DENIES ANY NEEDS CHRISTIANO.
[2021-04-11 23:35] VITALS: BP 133/89
[2021-04-12 08:41] VITALS: BP 159/119
--- NOTE | 2021-04-12 09:53 | NUR ---
CARE TAKEN OVER THIS AM, PT ALERT AND ORIENTED X4, DENIES PAIN NAUSEA AND VOMITTING. PT STATED HAVING DIARRHEA. CONTINUES TREMORS AND SOME ANXIETY. ANTIVAN GIVEN PER ORDER. SEIZURE PRECAUTIONS IN PLACE. ON ROOM AIR, N SIGNS OF DISTRESS. PT UP TO BATHROOM. DENIES ANY NEEDA AT THE MOMENT WILL CONTINUE TO MONITOR
[2021-04-12 10:00] VITALS: BP 140/106
[2021-04-12 13:38] LABS: URINE BILIRUBIN NEGATIVE (Negative); URINE BLOOD NEGATIVE (Negative); URINE CLARITY CLEAR; URINE COLOR YELLOW; URINE GLUCOSE-RANDOM* NEGATIVE (Negative); URINE KETONES TRACE (Negative); URINE LEUKOCYTES-REFLEX NEGATIVE (Negative); URINE NITRITE-REFLEX NEGATIVE (Negative); URINE PROTEIN (DIPSTICK) NEGATIVE (Negative); URINE SPECIFIC GRAVITY <= 1.005 (1.005-1.035)
[2021-04-12 13:43] LABS: AMP/METHAMP Negative (Negative); BARBITURATES Negative (Negative); BENZODIAZEPINES Negative (Negative); COCAINE Negative (Negative); METHADONE Negative (Negative); OPIATES Negative (Negative); PCP Negative (Negative)
[2021-04-12 15:18] VITALS: BP 134/101
--- NOTE | 2021-04-12 16:12 | NUR ---
INITIAL ASSESSMENT: Received consult. SW reviewed chart and spoke with nursing and attending physician. Pt was admitted from home due to seizure activity. Pt with hx of daily ETOH use (~1 pint of vodka). Psych consulted. SW met with pt's at bedside. Introduced role of SW. Pt was taking a shower during time of SW visit. SW discussed options for treatment with pt's . Pt's states that pt has tried to follow up with [facility] but has been unsuccessful with follow up appts. Pt's state pt would want to do outpatient treatment. Pt does not currently have health insurance. Pt's PCP is Dr. Sonia Rabago at [facility]. Discharge home is anticipated for tomorrow. SW to provide pt with list of ETOH treatment options for review. Pt's states that they will review options and contact the agency of choice for an appointment. Plan is for pt to discharge home when medically stable. SW is following to assist as needed with discharge planning.
[2021-04-12 20:45] VITALS: BP 154/117
[2021-04-13] VITALS: BP 148/102
[2021-04-13 03:29] VITALS: BP 175/125
--- NOTE | 2021-04-13 04:46 | NUR ---
NO COMPLAINT VOICED BY PT OVERNIGHT. CIWA SCORE 2-4. SLIGHTLY TREMULOUS HANDS OBSERVED. DENIED ANY OTHER SYMPTOMS OF ETOH W/D. CONTINUE TO MONITOR.
[2021-04-13 06:31] LABS: ALBUMIN 3.1 g/dL (3.4-5.0); CALCIUM 8.7 mg/dL (8.5-10.1); CREATININE 0.8 mg/dL (0.7-1.3); MAGNESIUM 1.6 mg/dL (1.8-2.4); PHOSPHORUS 4.6 mg/dL (2.5-4.9); TOTAL BILIRUBIN 0.8 mg/dL (0.2-1.0); TOTAL PROTEIN 6.8 g/dL (6.4-8.2)
[2021-04-13 07:12] VITALS: BP 155/113
[2021-04-13] MEDS ORDERED: CLONIDINE HCL0.3 M3 PO (08:58)
[2021-04-13] MEDS ORDERED: KEPPRA 500 MG500 M1 PO (08:58)
[2021-04-13 09:01] VITALS: BP 155/113
--- NOTE | 2021-04-13 09:14 | NUR ---
DISCHARGE NOTE: SW reviewed chart and spoke with nursing. Pt has been discharged. SW spoke with pt via phone regarding options for ETOH treatment. Pt is ready to discharge. Pt is agreeable with info and will discuss with his . SW encouraged pt to call agencies to discuss payment options, as pt does not have health insurance. Pt verbalized understanding. Pt provided with [facility] and [facility] list of ETOH outpatient treatment options for review. Contact info for ETOH treatment facilities also placed in pt's discharge summary. Pt's family to provide transportation home. No additional SW needs identified at this time, but is available to assist should needs arise.
--- NOTE | 2021-04-13 09:27 | NUR ---
D/C ORDERS IN, IV AND TELE D/C . DISCHARGE INSTRUCTIONS, NEW MEDS AND RESOURCES ABOUT ALCOHOL CESSATION PROVIDED TO PT. PT STATED UNDERSTANDING. DENIES ANY QUESTIONS.
[2021-04-13] MEDS ORDERED: CLONIDINE HCL0.1 MG PO (09:50)
== END 2021-04-13 09:32 | disposition home or self-care (01) | DRG 897 ==
LOC: ER 11:50 → EROBS 17:43 → 3W 18:14
PROVIDERS: Nurse Practitioner; ADMIT Hospitalist; ATTEND Hospitalist
DX: F10.139 Alcohol abuse with withdrawal, unspecified (principal); E83.42 Hypomagnesemia; E87.6 Hypokalemia; F10.10 Alcohol abuse, uncomplicated; F17.210 Nicotine dependence, cigarettes, uncomplicated
CPT/HCPCS: 10879

== ENCOUNTER 2021-08-01 20:04 | Inpatient (IN) | payer OTHER ==
[~2021-08-01] VITALS: Ht 170.2 cm; Wt 67.1 kg
[~2021-08-01 20:04] MED LIST changes: +CLONIDINE HCL0.1 MG PO; +CLONIDINE HCL0.3 M3 PO; +KEPPRA 500 MG500 M1 PO
[2021-08-01 20:06] VITALS: BP 147/127
[2021-08-01 20:56] LABS: HEMOGLOBIN 13.3 gm/dL (14.0-18.0); MCH 33.7 pg (26.0-34.0); MCHC 34.3 g/dL (28.0-37.0); MCV 98.3 fL (80.0-100.0); RBC 3.96 mil/uL (4.50-6.00); RDW 14.9 % (10.5-14.5); WBC 6.2 thou/uL (4.0-11.0)
[2021-08-01 21:06] LABS: URINE BILIRUBIN 1+ (Negative); URINE BLOOD TRACE (Negative); URINE CLARITY CLEAR; URINE COLOR YELLOW; URINE GLUCOSE-RANDOM* NEGATIVE (Negative); URINE KETONES 1+ (Negative); URINE LEUKOCYTES-REFLEX TRACE (Negative); URINE NITRITE-REFLEX NEGATIVE (Negative); URINE PROTEIN (DIPSTICK) 2+ (Negative); URINE SPECIFIC GRAVITY 1.015 (1.005-1.035); URINE UROBILINOGEN >= 8.0 E.U./dl (0.2-1.0)
[2021-08-01 21:07] LABS: ICTOTEST (BILI CONFIRMATORY) Negative (Negative)
[2021-08-01 21:11] LABS: AMP/METHAMP Negative (Negative); BARBITURATES Negative (Negative); BENZODIAZEPINES Negative (Negative); COCAINE Negative (Negative); METHADONE Negative (Negative); OPIATES Negative (Negative); PCP Negative (Negative)
[2021-08-01 21:18] LABS: ALBUMIN 3.7 g/dL (3.4-5.0); CALCIUM 8.2 mg/dL (8.5-10.1); CREATININE 1.2 mg/dL (0.7-1.3); TOTAL BILIRUBIN 2.1 mg/dL (0.2-1.0); TOTAL PROTEIN 7.8 g/dL (6.4-8.2)
[2021-08-01 21:20] LABS: BACTERIA-REFLEX 1-9 Few /HPF (None Seen); CRYSTALS None Seen /LPF (None Seen); SQUAMOUS 0-3 Few /LPF (0-3); URINE RBC 1-2 Rare /HPF (NONE SEEN); URINE WBC-REFLEX 0-5 Rare /HPF (0-5)
[2021-08-01 21:21] LABS: HYALINE CASTS 0-3 Few /LPF (None Seen)
[2021-08-01 21:27] LABS: MAGNESIUM 0.8 mg/dL (1.8-2.4); POTASSIUM 2.4 mmol/L (3.5-5.1)
[2021-08-01 23:33] VITALS: BP 149/99
--- NOTE | 2021-08-01 23:41 | NUR ---
PT'S [phone]
[2021-08-01 23:59] VITALS: BP 124/88; BP 150/103
[2021-08-02 00:45] VITALS: BP 138/97
[2021-08-02 04:10] VITALS: BP 126/80
[2021-08-02 06:25] LABS: HEMATOCRIT 36.2 % (42.0-52.0); HEMOGLOBIN 12.6 gm/dL (14.0-18.0); MCH 34.5 pg (26.0-34.0); MCHC 34.7 g/dL (28.0-37.0); MCV 99.2 fL (80.0-100.0); RBC 3.64 mil/uL (4.50-6.00); RDW 14.7 % (10.5-14.5); WBC 5.7 thou/uL (4.0-11.0)
[2021-08-02 06:59] LABS: CALCIUM 7.9 mg/dL (8.5-10.1); CREATININE 0.7 mg/dL (0.7-1.3)
[2021-08-02 07:03] LABS: POTASSIUM 2.5 mmol/L (3.5-5.1)
[2021-08-02 07:08] LABS: ALBUMIN 3.3 g/dL (3.4-5.0); DIRECT BILIRUBIN 0.7 mg/dL (<0.1-0.2); TOTAL BILIRUBIN 2.2 mg/dL (0.2-1.0); TOTAL PROTEIN 6.9 g/dL (6.4-8.2)
--- NOTE | 2021-08-02 07:26 | EKG ---
[address] [place] [address] ELECTROCARDIOGRAM REPORT Name: ALEXANDRU LUA Room #: 358-P ADM IN M.R.#: [id number] Admission: 08/01/21 Attend Phys: Tyrone Coleman MD Discharge: Date of : [birth year] Report #: [id number] [facility] ED Test Date: 2021-08-01 Test Time: 20:51:53 Pat Name: ALEXANDRU LUA Department: Room: [facility] Gender: M Plant Attendant: daniel : 1995 Requested By: Campbell Ortega Order Number: [id number] MD: Omkar Rajput Measurements Intervals [place] Rate: 85 P: -21 IN: 166 QRS: 27 QRSD: 128 T: 66 QT: 392 QTc: 467 Interpretive Statements Sinus rhythm Nonspecific intraventricular conduction delay Compared to ECG 01/23/2021 13:41:47 Intraventricular conduction delay now present Right ventricular hypertrophy no longer present Prolonged QT interval no longer present Electronically Signed On 08-02-2021 7:26:15 CDT by Omkar Rajput [email or web address] <ELECTRONICALLY SIGNED> By: Omkar Rajput MD, [facility] 08/02/21725 50 50 Omkar Rajput MD, FAC /EPI
[2021-08-02 07:28] VITALS: BP 133/91
--- NOTE | 2021-08-02 07:36 | NUR ---
PT ADMITTED TO ROOM 358 AT APPROXIMATELY 00:30 FROM ED. ADMISSION ASSESSMENTS COMPLETED, SEE CHARTING. PT ADMITTED FOR SEIZURES AND ETOH WITHDRAWAL. PT PLEASANT AND COOPERATIVE THROUGHOUT THE NIGHT WITH NO CONCERNS VOICED. DENIES PAIN, N/V, HEADACHE. MINIMAL WITHDRAWAL SYMPTOMS NOTED. ORDERS IN PROGRESS (SEE MAR FOR DETAILS). THIS MORNING PT STATES HE IS "FEELING PRETTY GOOD." WILL CONTINUE TO MONITOR.
[2021-08-02] MEDS ORDERED: CLONIDINE HCL0.1 MG PO (08:39)
--- NOTE | 2021-08-02 12:00 | NUR ---
INITIAL ASSESSMENT: Received consult. CHAU reviewed chart and spoke with nursing and attending physician. Pt was admitted from home due to seizure activity. Pt with hx of daily ETOH use (~1 pint of vodka). CHAU met with pt at bedside. Introduced role of SW. Pt is alert/orientated x 4. Pt reports he lives at home with his . Prior to admission, pt was independent with ADLS. Pt confirms his daily ETOH consumption and states that he is interested in treatment options. Pt has been provided with info in the past. Pt states he has not been successful in initiating and following through with treatment. Pt does not currently have health insurance. Pt states he recently started a new job and might be eligible for insurance through his employer. Pt's PCP is Dr. Sonia Rabago at [facility] [place]. Discharge home is anticipated in 1-2 days. SW to provide pt with list of ETOH treatment options for review. CHAU also reached out to [facility] to assist with providing treatment options for pt prior to discharge and to assist if pt is able to establish insurance. [employer] to screen patient for possible Medicaid application. Plan is for pt to discharge home when medically stable. CHAU is following to assist as needed with discharge planning.
[2021-08-02 15:58] VITALS: BP 128/92
[2021-08-02 20:10] VITALS: BP 151/108
[2021-08-03 00:16] VITALS: BP 154/111
[2021-08-03 03:30] VITALS: BP 149/107
[2021-08-03 05:17] LABS: HEMATOCRIT 31.4 % (42.0-52.0); HEMOGLOBIN 10.8 gm/dL (14.0-18.0); MCH 34.7 pg (26.0-34.0); MCHC 34.6 g/dL (28.0-37.0); MCV 100.3 fL (80.0-100.0); RBC 3.13 mil/uL (4.50-6.00); RDW 14.6 % (10.5-14.5); WBC 4.4 thou/uL (4.0-11.0)
[2021-08-03 05:27] LABS: CALCIUM 7.7 mg/dL (8.5-10.1); POTASSIUM 3.7 mmol/L (3.5-5.1)
--- NOTE | 2021-08-03 07:28 | NUR ---
PT MAKING NO PROGRESS TOWARDS GOALS. SEE CIWA SCORES. ATIVAN X1 IN THE EVENING FOR COMPLAINT OF RESTLESSNESS AND ANXIETY. PT STATED THAT HE SLEPT "OFF AND ON" OVER THE NIGHT. THIS AM PT STATED "I FEEL GOOD, I REALLY DO." AT APPROXIMATELY 0530 FOUND TO PUT HIS STREET CLOTHES ON, TELEMETRY WIRES PARTIALLY REMOVED AND HIS IV LINE PARTIALLY WRAPPED AROUND HIM. PT HAD VISIBLE TREMOR, WAS RESTLESS AND SLIGHTLY AGITATED. DOSE WITH ATIVAN PER CIWA PROTOCOL. SHORTLY AFTER THIS PT WAS STATING THAT HE WANTED TO GO HOME AND THAT HIS FAMILY WAS WAITING FOR HIM DOWN STAIRS. PT ORIENTED TO HIS NAME AND "[facility]." PT THEN FREQUENTLY WALKING IN HALLWAY, HEADING TOWARDS THE EXIT STATING THAT HE WAS LEAVING. ATTEMPTED MULTIPLE TIMES WITHOUT SUCCESS TO ORIENT PT TO HIS SITUATION AND LOCATION. PT CONTINUED TO STATE THAT HE WAS GOING TO LEAVE. PTS ABILITY TO TRACK THE CONVERSATION WAS DETERIORATING HE WAS MAKING STATEMENTS THAT HAD NO APPARENT CONNECTION TO HIS SITUATION. SPEECH WAS BECOMING MORE AND MORE MUMBLED AND CONVERSTATIONS BECOMING MORE AND MORE JUMBLED. ORDERS RECEIVED FROM LIVE IN CAREGIVER. SOFTWARE TEST AND VALIDATION ENGINEER INFORMED OF ORDER FOR TRANSFER TO ICU.
--- NOTE | 2021-08-03 12:35 | NUR ---
ASSUMED PATIENT CARE AT 0700. PATIENT ALERT. PACING IN HALLWAY AGITA. SECURITY WAS HERE TWO TIMES. STARTED NEW IV AND 4MG ATIVAN GIVEN AT 0713. MARCIE WRIST RESTRIANTS APPLIED AT 0730. CIW 25. PATIENT KEEP IMPULSIVE AND RESTLESS. TRANSFER TO [facility] AT 1130.
--- NOTE | 2021-08-03 12:55 | NUR ---
VAT CONSULTED FOR PICC, PT'S LABS,MEDS,ORDER CONSENT VERIFIED. TIFFANIE DUANE WAS WIDELY PATENT WITH USG. 5FR TL POWER PICC TRIMMED TO 46CM INSERTED TO 3CM EXTERNAL WITH PEAKED P-WAVES ON 3CG FOR CONFIRMATION. PICC RELEASED FOR IMMEDIATE USE PER PROTOCOL. BLEEDING AT INSERTION SITE, GAUZE, DRG, ABD ,COBAN APPLIED AFTER PRESSURE HELD.
--- NOTE | 2021-08-03 13:33 | NUR ---
CHAU reviewed chart and spoke with nursing and attending physician. Pt was placed in restraints this morning due to agitation. Public safety was called twice this morning due to pt's behaviors-ETOH withdrawal. Pt was transferred to ICU earlier today. No weekend discharge anticipated. CHAU updated Jamee with [facility]. CHAU is following to assist as needed with discharge planning.
--- NOTE | 2021-08-03 15:13 | NUR ---
PT ARRIVED AT THE UNIT AT 1200 PT IS EXTREMELY AGITATED AND PULLED OUT HIS ONE REMAINING IV. IT TOOK SEVERAL OF US TO HOLD HIM STILL IN ORDER TO GET A LINE. PATIENT IS EXTREMELY CONFUSED AND COMBATIVE. I SPOKE TO THE PTS AT 1321 AND UPDATED HER PER POC. SHE STATED THAT SHE WILL COME TO SEE HIM AT 1600
[2021-08-04] VITALS (38 sets, daily range): BP systolic 95–151; BP diastolic 57–113
--- NOTE | 2021-08-04 02:27 | NUR ---
Pt's called at 2230 for update and she requested that the pt's mom and dad by included to the list of visitors besides her. Pt not progressing towards goal at the moment. Precedex infusing and pt sleeping but the pt is very combative when he wakes up, he tries to get out of bed which took 3 staff to safely hold in bed. Prn meds given per protocol with intermitted relief. Will continue to monitor.
[2021-08-04 05:43] LABS: ABSOLUTE NEUTROPHILS 7.9 thou/uL (1.4-8.2); BASOPHILS 0.4 % (0.0-2.0); EOSINOPHILS 0.4 % (0.0-3.0); HEMATOCRIT 38.4 % (42.0-52.0); LYMPHOCYTES 7.4 % (24.0-44.0); MCH 34.8 pg (26.0-34.0); MCHC 34.2 g/dL (28.0-37.0); MCV 101.8 fL (80.0-100.0); MONOCYTES 5.2 % (1.0-8.0); PLATELET COUNT 113 thou/uL (150-400); POLYS 86.6 % (36.0-66.0); RBC 3.77 mil/uL (4.50-6.00); RDW 15.1 % (10.5-14.5); WBC 9.1 thou/uL (4.0-11.0)
[2021-08-04 05:46] LABS: HEMOGLOBIN 13.1 gm/dL (14.0-18.0)
[2021-08-04 05:47] LABS: ALBUMIN 3.1 g/dL (3.4-5.0); CALCIUM 8.3 mg/dL (8.5-10.1); CREATININE 0.6 mg/dL (0.7-1.3); POTASSIUM 3.2 mmol/L (3.5-5.1); TOTAL BILIRUBIN 1.4 mg/dL (0.2-1.0); TOTAL PROTEIN 7.1 g/dL (6.4-8.2)
--- NOTE | 2021-08-04 06:23 | NUR ---
Pt currently not progressing towards goal. Pt became very combative around 0530, it took 8 nurses to safely avoid pt harming himself or others. Pt was still in juan. soft wrist restraints, ankle restraints were apply as pt was kicking and an order was received. Erica Ansari was contact for addition meds besides the attivan and a restraint order was also received. Pt later went to sleep with precedex still infusing. Will give report to day nurse.
--- NOTE | 2021-08-04 07:58 | NUR ---
0740-PT WOKE SUDDENLY,SITTING BOLT UPRIGHT IN BED,CUSSING BUT MOST OF SPEECH GARBLED. ANKLES OUT OF RESTRAINTS BY NIGHT RN. PT TRYING TO GET OOB,VERY CONFUSED,PULLING STRONGLY AGAINST WRIST RESTRAINTS.--VW 0800-GEODAN IM GIVEN.--VW
[2021-08-04 22:01] LABS: BE(vivo) -10.5 mmol/L (-2 to +3); HCO3 12.6 mmol/L (22.0-26.0); PCO2 22.3 mmHg (35.0-45.0); PO2 80.2 mmHg (80.0-100.0); pH 7.369 (7.360-7.450); sO2 95.8 % (92.0-98.0)
[2021-08-04 23:02] LABS: CALCIUM 8.1 mg/dL (8.5-10.1); CREATININE 0.7 mg/dL (0.7-1.3); POTASSIUM 4.3 mmol/L (3.5-5.1)
[2021-08-04 23:05] LABS: MAGNESIUM 1.8 mg/dL (1.8-2.4); PHOSPHORUS 3.2 mg/dL (2.6-4.7)
[2021-08-04 23:31] LABS: URINE BILIRUBIN 1+ (Negative); URINE BLOOD TRACE (Negative); URINE CLARITY CLEAR; URINE COLOR YELLOW; URINE GLUCOSE-RANDOM* NEGATIVE (Negative); URINE KETONES 3+ (Negative); URINE LEUKOCYTES-REFLEX TRACE (Negative); URINE NITRITE-REFLEX NEGATIVE (Negative); URINE PROTEIN (DIPSTICK) NEGATIVE (Negative); URINE SPECIFIC GRAVITY 1.025 (1.005-1.035); URINE UROBILINOGEN 0.2 E.U./dl (0.2-1.0)
[2021-08-04 23:44] LABS: ICTOTEST (BILI CONFIRMATORY) Positive (Negative); URINE REDUCING SUBSTANCE 0 %
[2021-08-05] VITALS (29 sets, daily range): BP systolic 120–163; BP diastolic 65–113
--- NOTE | 2021-08-05 05:10 | NUR ---
Pt not progressing towards goal. Pt still scoring above 15 on the alcohol protocol hourly and treatment given accordingly. One time order of zyprexa received from Elan Wesley with relief only for an hour, Dr. Fletcher also saw the pt and orders received (see chart). Pt on room air, vss within normal limits except for high rr. Pt's called at 0322 and was updated, she requested to be contacted whenever the makes rounds.
--- NOTE | 2021-08-05 11:41 | NUR ---
PT IS NOT PROGRESSING TOWARDS DISCHARGE, VERY VIOLENT AND THRASHING AROUND FROM THE START OF THE SHIFT, EVERY HOURLY PATIENT GETS UP AND STARTS MOUTHING, MAY BE DUE TO LACK OF SEDATION, RN STARTED HOURLY SEDATION AND HOURLY CIWA CHECKS PER ORDER AND FOLLOWING DIRECTIONS EMIR, ASSESSING FOR S, S/X OF OVER SEDATION. PATIENT IS APPROACHING 72-96HOUR GARRET OF ETOH WITHDRAWAL AND SHOWING SYMPTOMS OF INCREASING/PEAKING AGITATION, YESTERDAY REQUIRED 5-6 STAFF MEMBERS TO KEEP DOWN, RN WILL ENSURE WITH TWO RNs AND TECHNICAL SERVICES MANAGER IN THIS POD THAT PATIENT WILL REMAIN SAFELY SEDATED. WHEN UP PATIENT HAS BEEN SCORING CIWA OF 35 CLOSELY MONITORING, WILL UPDATE NECESSARY
[2021-08-05 15:53] LABS: CALCIUM 7.9 mg/dL (8.5-10.1); CREATININE 0.7 mg/dL (0.7-1.3)
[2021-08-05 15:54] LABS: POTASSIUM 3.2 mmol/L (3.5-5.1)
[2021-08-05 23:13] LABS: MAGNESIUM 1.8 mg/dL (1.8-2.4); POTASSIUM 3.6 mmol/L (3.5-5.1)
[2021-08-06] VITALS (20 sets, daily range): BP systolic 107–162; BP diastolic 60–110
[2021-08-06 06:30] LABS: HEMATOCRIT 36.3 % (42.0-52.0); HEMOGLOBIN 12.2 gm/dL (14.0-18.0); MCH 34.2 pg (26.0-34.0); MCHC 33.7 g/dL (28.0-37.0); MCV 101.3 fL (80.0-100.0); PLATELET COUNT 157 thou/uL (150-400); RBC 3.58 mil/uL (4.50-6.00); WBC 8.4 thou/uL (4.0-11.0)
[2021-08-06 06:56] LABS: ALBUMIN 2.1 g/dL (3.4-5.0); CALCIUM 8.1 mg/dL (8.5-10.1); CREATININE 0.5 mg/dL (0.7-1.3); DIRECT BILIRUBIN 0.2 mg/dL (<0.1-0.2); MAGNESIUM 2.4 mg/dL (1.8-2.4); PHOSPHORUS 3.3 mg/dL (2.6-4.7); POTASSIUM 3.4 mmol/L (3.5-5.1); TOTAL BILIRUBIN 0.6 mg/dL (0.2-1.0); TOTAL PROTEIN 5.8 g/dL (6.4-8.2)
--- NOTE | 2021-08-06 12:54 | NUR ---
PATIENT IS PROGRESSING TOWARDS DISCHARGE AT THIS TIME, PATIENT IS STILL VERY MUCH AGITATED WHEN AWAKENED, IMPULSIVE, AND NOT FOLLOWING DIRECTIONS BUT THE SPEECH IS CLEARER, AND THOUGH NOT FOLLOWING DIRECTIONS, PATIENT APPEARS TO UNDERSTAND AND COHERENCY SEEMS TO BE RETURNING..SLOWLY GOALS OF CARE DISCUSSED DURING ROUNDING THIS MORNING, RN DISCUSSED THE NECESSITY TO CONTINUE USE OF ATIVAN NEEDED FOR THE PATIENT FOR SAFE ETOH WITHDRAWAL RECOVERY. BUT ALSO CONTINUING TO ADVANCE PATIENT CARE POSSIBLE TO NOT PROLONG UNNECESSARY/EXTENDED ICU STAY. RN TO COMPLY AND COORDINATE CARE W/ APPROPERIATE TEAM MEMBERS TO EFFICIENTLY DIRECT CARE. EDUCATION OF PATIENT'S CONDITION AND GOALS OF CARE EXPLAINED TO AT BEDSIDE, NO COMPLAINTS AT THIS TIME. IS SLEEPING, WARM BLANKET PROVIDED BY THIS RN.
[2021-08-06 14:56] LABS: ABSOLUTE NEUTROPHILS 5.8 thou/uL (1.4-8.2); ATYPICAL LYMPHS 2 %
[2021-08-06 14:57] LABS: ANISOCYTOSIS 1+
--- NOTE | 2021-08-06 16:19 | NUR ---
bedside passed on information about tx programs. Cm called left message wit family to call cm back. Discussed during los with hospitalist. No anticipated dc today r/t with-drawls.
[2021-08-07] VITALS (16 sets, daily range): BP systolic 126–175; BP diastolic 67–115
--- NOTE | 2021-08-07 04:53 | NUR ---
Pt progressing towards goal. Follows commands with occasional agitation, CIWA score done and treated per protocol with increased time interval btwn treatment. SR, manyly normatensive with increased bp treated per order, pt on room air with rr btwn 30-40s. Normal UOP, no bm during the shift and pt was able to take sips of water. called around 2100 and was updated on pt's status.
--- NOTE | 2021-08-07 08:42 | NUR ---
Chart review. discussed during unit rounds. cont to required restraints for with-drawls, agitation and restless. he voiced he wants to go out and smoke cig per tate. Precedex and prn for agitation. not returned cm phone call, will cont. following as needed for dc needs.
--- NOTE | 2021-08-07 19:49 | NUR ---
PT PROGRESSING TOWARD DISCHARGE GOALS EVIDENCED BY IMPROVED ORIENTATION AND A DECREASE IN PRECEDEX, IMPROVED NUTRITIONAL INTAKE, AND CIWA DECREASED. PT SINUS RHYTHM WITH ONE EPISODE OF HTN WITH HYDRALAZINE GIVEN. PRECEDEX GTT TITRATED DOWN. POTASSIUM REPLACED WITH LABS DRAWN PER PROTOCOL. CIWA SCORES TRENDING DOWN. POC INCLUDES TITRATION OF PRECEDEX GTT WITH POSSIBLE TRANSFER TO OTHER UNIT.
[2021-08-08] VITALS (38 sets, daily range): BP systolic 112–208; BP diastolic 66–135
[2021-08-09] VITALS (38 sets, daily range): BP systolic 112–191; BP diastolic 64–125
[2021-08-09 05:45] LABS: CREATININE 0.7 mg/dL (0.7-1.3); POTASSIUM 3.4 mmol/L (3.5-5.1)
--- NOTE | 2021-08-09 09:22 | NUR ---
AWAKE RESTLESSS AT TIMES AND HALLUCINATING. ATTEMPTS TO GET OUT OF BED RESTRAINTS ON COOPERATIVE. 1000 CC UO THIS SHIFT. NO SEIZURE ASCTIVITY SLOWLY PROGGRESSING TOWARD GOALS. PRECEDEX GTT ANJD ATMELANIE PRN
--- NOTE | 2021-08-09 19:49 | NUR ---
PT RESTLES, HAVING VISUALAND AUDITORY HALLUCINATION, AT TIMES AGGREIVE AND HOSTILE TOWARD THE STAFF. PRECEDEX D/C PER MD VERBAL ORDER ATIVAN AND HALDOL TO BE GIVEN ON STANDING BASIS AND PRN DOSES.WITH ORAL MEDS TO PREVENT WITHDRALS SYSTEMS
--- NOTE | 2021-08-09 22:52 | NUR ---
HR GRADUALLY INCREASING FROM LOW 100'S AT START OF SHIFT TO 130'S AT 0. 2200 HR IN 150'S, PT CALM BUT EXTREMELY JITTERY/TREMORING, C/O FEELING ANXIOUS BUT DENIES PALPITATIONS OR RACING HR, GAVE DOSE OF ATIVAN TO LITTLE EFFECT; HR MAXED TO 165 AT 2230, OBTAINED ONE TIME ORDER FOR LOPRESSOR IVP FROM LUCINDA THURMAN. HR DOWN TO 110 AT 2255. WILL CONTINUE TO MONITOR.
[2021-08-10] VITALS (18 sets, daily range): BP systolic 147–181; BP diastolic 89–119
[2021-08-10 06:31] LABS: CALCIUM 9.1 mg/dL (8.5-10.1); CREATININE 0.7 mg/dL (0.7-1.3); MAGNESIUM 1.4 mg/dL (1.8-2.4); POTASSIUM 3.5 mmol/L (3.5-5.1)
--- NOTE | 2021-08-10 14:41 | NUR ---
PT DID NOT RECEIVE OT EVAL PER HIS REQUEST. PHYSICAL THERAPY SIGNED OFF FOR MOBILITY.
[2021-08-10 16:57] LABS: MAGNESIUM 1.6 mg/dL (1.8-2.4); POTASSIUM 3.6 mmol/L (3.5-5.1)
--- NOTE | 2021-08-10 17:33 | NUR ---
PT PROGRESSING TODAY TOWARDS D/C GOALS. PT IS A&OX3, GCS OF 15. PT VERY POLITE AND COOPERATIVE TODAY DURING HIS STAY IN THE ICU. PT ABLE TO EXERCISE WITH PT TODAY, ABLE TO STAND AT BEDSIDE AND USE COMMODE IN WHICH HE PRODUCED A SMALL BM. PT GIVEN MAG CITRATE WELL TODAY TO HELP PRODUCE A BM. PT GIVEN MAG AND POTASSIUM PO PILLS TODAY TO HELP REPLENISH LOW LEVELS. PT TRANSFERRED TO 3W ROOM 360, REPORT GIVEN TO RICHARD ALDRIDGE WHO WILL TAKING THE PATIENT. PT TRANSFERRED VIA WHEELCHAIR WITH AT BEDSIDE.
--- NOTE | 2021-08-10 18:34 | NUR ---
PT TRANSFER FROM ICU TO ROOM 360. ALERT AND ORIENTED X4. DENIES ANY PAIN. VISIBLE TREMORS. ATIVAN GIVEN FOR AGITATION. CIWA ASSEMNT COMPLETED. PT UP WITH STAND BY. FALL PRECAUTIONS IN PLACE. WILL CONTINUE TO MONITOR
--- NOTE | 2021-08-11 00:15 | NUR ---
pt has had an elevated heart rate for at least 30 minutes. had an episode earlier in the shift of elevated heart rate. reported to customer solutions representative out patient therapist. recommended that he take an additional anti-anxiety medication. gave 4 mg ativan based on the ciwa level. reassured pt and have him laying in bed. his heart rate is still in the upper 130's after taking the medication.
--- NOTE | 2021-08-11 03:10 | NUR ---
WAKES UP QUICKLY AND STARTS WALKING TOWARD BATHROOM. HE IS VERY CONCERNED IFNURSES ARE ANGRY. HE STARTED TO WALK OUT OF ROOM WHEN NEEDING THE RESTROOM AND STATED THAT HE WAS GOING TO HEAD BACK TO HIS ROOM. HE THOUGHT HE WAS AT HOME. HIS HEART RATE JUMPS UP INTO THE HIGH 140'S TO 150 WHEN UP OUT OF BED. AFTER BEING SETTLED BACK IN BED HIS HEART RATE IS BACK DOWN TO THE 120'S
[2021-08-11 06:18] VITALS: BP 122/68
[2021-08-11 07:49] VITALS: BP 151/108
--- NOTE | 2021-08-11 09:14 | NUR ---
VASCULAR ACCESS NURSE- THIS PATIENT IS NO LONGER NEEDING CENTRAL ACCESS. RECOMMEND REMOVAL OF PICC AND PLACE PIV TO DECREASE RISK OF CATHETER RELATED BLOOD STREAM INFECTION.
[2021-08-11 09:27] LABS: CALCIUM 9.1 mg/dL (8.5-10.1); CREATININE 0.8 mg/dL (0.7-1.3); MAGNESIUM 1.7 mg/dL (1.8-2.4); POTASSIUM 3.9 mmol/L (3.5-5.1)
[2021-08-11 11:10] VITALS: BP 139/98
[2021-08-11 15:19] VITALS: BP 116/71
[2021-08-11 19:41] VITALS: BP 146/96
--- NOTE | 2021-08-11 19:46 | NUR ---
RN ASSUMED PT'S CARE AT 0700-1900PM, PT IS A&OX3 ( PERSON, PLACE AND TIME), PT IS ON ROOM AIR , PT'S VS ARE STABLE, PT'S ALCHOL WITH DRAWA ASSESSMENT IS 5-12, PT'S S/S CAN CONTROL BY IV AND PO MEDICATIONS, PT IS POOR EATING AT MEAL TIME.
--- NOTE | 2021-08-12 00:47 | NUR ---
PT RESTING IN BED, VISITED. IVF INTACT. PT CALLS FOR ASSISTANCE TO AMBULATE TO RESTROOM. PT CONTINUES WITH BUE TREMORS AND ANXIETY. PT HAD FOOD FROM HOME PROVIDED. BLUNTED AFFECT. TIFFANIE PICC INTACT.
[2021-08-12 02:34] VITALS: BP 139/93
--- NOTE | 2021-08-12 06:03 | NUR ---
PT STATING HE WANTS IVF STOPPED AND IV DCD. WILL PASS ON TO DAY NURSE. PT ATE AND DRANK OFTEN THROUGHOUT THE NIGHT.
[2021-08-12 07:22] VITALS: BP 144/94
[2021-08-12] MEDS ORDERED: PROTONIX40 M2 PO (11:13)
[2021-08-12] MEDS ORDERED: VITAMIN B-1100 M2 PO (11:13)
[2021-08-12] MEDS ORDERED: ATIVAN0.5 M1 PO (11:13)
[2021-08-12] MEDS ORDERED: NICOTINE1 EAC2 TRANSDERM (11:13)
[2021-08-12] MEDS ORDERED: METOPROLOL SUCC50 MG PO (11:13)
[2021-08-12] MEDS ORDERED: PRENATAL PO (11:13)
[2021-08-12 11:28] VITALS: BP 144/94
--- NOTE | 2021-08-12 12:27 | NUR ---
pt alert and oriented x4. denies any pain, nausea and vomitting. pt ambualate in the gao way, independently. dr. dunne made aware. d/c orders in. discharge instruction went through with pt and partner. educated about new medications. scripts send to pt pharmacy that was given. picc line d/c. tele d/c. all belongings with pt. denies any needs.
== END 2021-08-12 12:43 | disposition home or self-care (01) | DRG 896 ==
LOC: ER 20:04 → 3W 22:14 → EROBS 22:14 → 3W 08-02 00:24 → ICU 08-03 11:21 → 3W 08-10 17:15
PROVIDERS: Internal Medicine; Internal Medicine Pulmonary Disease; Nurse Practitioner Family; Physician Assistant; ADMIT Hospitalist; ATTEND Hospitalist
PROC: 05HY33Z Insertion of Infusion Device into Upper Vein, Percutaneous Approach (ICD-10-PCS; principal; 2021-08-03)
DX: F10.231 Alcohol dependence with withdrawal delirium (principal); G93.41 Metabolic encephalopathy; J18.9 Pneumonia, unspecified organism; E44.0 Moderate protein-calorie malnutrition; E87.2 Acidosis; F10.239 Alcohol dependence with withdrawal, unspecified; I16.0 Hypertensive urgency; Z20.822 Contact with and (suspected) exposure to COVID-19; E83.42 Hypomagnesemia; E87.6 Hypokalemia; F17.210 Nicotine dependence, cigarettes, uncomplicated; R74.01 Elevation of levels of liver transaminase levels; G40.909 Epilepsy, unspecified, not intractable, without status epilepticus; F41.9 Anxiety disorder, unspecified; D64.9 Anemia, unspecified; D69.6 Thrombocytopenia, unspecified; I10 Essential (primary) hypertension; Z91.14 Patient's other noncompliance with medication regimen; Z71.6 Tobacco abuse counseling; Z68.23 Body mass index [BMI] 23.0-23.9, adult; Z79.899 Other long term (current) drug therapy
CPT/HCPCS: 10078; 10779; 10879; 27000

== ENCOUNTER 2021-09-07 16:03 | Emergency (ER) | payer OTHER ==
[~2021-09-07] VITALS: Ht 170.2 cm; Wt 68.0 kg
[~2021-09-07 16:03] MED LIST changes: +ATIVAN0.5 M1 PO; +METOPROLOL SUCC50 MG PO; +NICOTINE1 EAC2 TRANSDERM; +PRENATAL PO; +PROTONIX40 M2 PO
[2021-09-07 16:17] VITALS: BP 156/113
[2021-09-07 16:51] LABS: URINE BILIRUBIN NEGATIVE (Negative); URINE BLOOD NEGATIVE (Negative); URINE CLARITY CLEAR; URINE COLOR YELLOW; URINE GLUCOSE-RANDOM* NEGATIVE (Negative); URINE KETONES NEGATIVE (Negative); URINE LEUKOCYTES-REFLEX NEGATIVE (Negative); URINE NITRITE-REFLEX NEGATIVE (Negative); URINE PROTEIN (DIPSTICK) NEGATIVE (Negative); URINE SPECIFIC GRAVITY <= 1.005 (1.005-1.035); URINE UROBILINOGEN 0.2 E.U./dl (0.2-1.0)
== END 2021-09-07 17:37 | disposition home or self-care (01) ==
LOC: ER 16:03
PROVIDERS: Emergency Medicine
DX: R30.0 Dysuria (principal); I10 Essential (primary) hypertension; F41.9 Anxiety disorder, unspecified; F17.210 Nicotine dependence, cigarettes, uncomplicated; Z98.890 Other specified postprocedural states; Z79.891 Long term (current) use of opiate analgesic; Z79.899 Other long term (current) drug therapy; Z88.8 Allergy status to other drugs, medicaments and biological substances

== ENCOUNTER 2021-12-03 09:08 | Emergency (ER) | payer OTHER ==
[~2021-12-03] VITALS: Ht 170.2 cm; Wt 68.0 kg
--- NOTE | ~2021-12-03 | EMS ---
[place] [address] EMS Patient Care Report Name: ALEXANDRU LUA Room #: PRE M.R.#: [id number] Admission: Attend Phys: Discharge: Date of : [birth year] Report #: [id number] THIS REPORT FOR: //name// Report Transmitted: 12/03/2021 08:54 EMS Care Summary [place], [place]/[facility] Incident [id number] @ 12/03/2021 08:40 Incident Location [address] [place] [address] Patient ALEXANDRU LUA Male, 26 Years 1995 Patient Address [address] [place], [place] [id number] Patient History Hypertension (HTN),Seizures,Anxiety, Patient Allergies No known allergies, Patient Medications Gabapentin, Metoprolol, Chief Complaint ANXIETY/ TREMORS Disposition Transported No Lights/[place] Dispatch Reason Sick Person Transported To [facility] Narrative UPON ARRIVA PT BEING ASSISTED DOWN STEPS TO AMBULANCE. PT CONSCIOUS AND ALERT. PT STATES THAT 30 MIN AGO HE WAS JUST SITTING ON THE COUCH [place] [address] EMS Patient Care Report Name: ALEXANDRU LUA Room #: PRE ER M.R.#: [id number] Admission: Attend Phys: Discharge: Date of : [birth year] Report #: [id number] VERY ANXIOUS AND A LITTLE SOB AND STARTED SHAKING. PT STATES HE HAS A HX OF ANXIETY. PT ALSO WENT TO ER 2 WEEKS AGO DUE TO SEIZURES FROM ALCOHOL WITHDRAWAL. PT ALSO HAS A HX OF HYPERTENSION AND HASN'T TAKEN MEDS YET THIS MORNING. PT TRANSPORTED TO [facility]. Initial Vitals @08:54P: 104,BP: 190/132,CO: 1, @08:51P: 133,CO: 3,SpO2: 99, @08:51P: 110,R: 24,BP: 223/151,Pain: 0/10,GCS: 15,SpO2: 98,Revised Trauma: 12, @09:02P: 88,R: 24,BP: 185/113,GCS: 15,CO: 1,SpO2: 99,Revised Trauma: 12, Assessments @08:50MENTAL:Person Oriented,Time Oriented,Event Oriented,Place Oriented,SKIN:HEENT:Head/Face: No Abnormalities,Neck/Airway: No Abnormalities,LUNG SOUNDS:General: No Abnormalities,ABDOMEN:General: No Abnormalities,PELVIS//GI:EXTREMITIES:Right Leg: Abnormal Sensation,Right Arm: Abnormal Sensation,Left Arm: Abnormal Sensation,Left Leg: Abnormal Sensation,PULSE:Radial: 2+ Normal,NEURO:Tremors, Impression Anxiety reaction/Emotional upset Procedures @08:50 ALS Assessment Response: UnchangedSucceeded Timeline 08:37,Call Received 08:37,Dispatch Notified 08:40,Dispatched 08:41,En Route 08:45,On Scene 08:47,At Patient 08:50,ALS Assessment,Response: UnchangedSucceeded, 08:51,BP: / M,PULSE: 133,RR: R,SPO2: 99 Ox,ETCO2: ,BG: ,PAIN: ,GCS: , 08:51,BP: 223/151 M,PULSE: 110,RR: 24 R,SPO2: 98 Ox,ETCO2: ,BG: ,PAIN: 0,GCS: 15, 08:52,Depart Scene 08:54,BP: 190/132 M,PULSE: 104,RR: R,SPO2: Ox,ETCO2: ,BG: ,PAIN: ,GCS: , 09:02,BP: 185/113 M,PULSE: 88,RR: 24 R,SPO2: 99 Ox,ETCO2: ,BG: ,PAIN: ,GCS: 15, 09:04,At Destination 09:22,Call Closed Disclaimer v1.1 Copyright 2021 [employer] This EMS Care Summary contains data elements from the applicable legal record [address] [address] EMS Patient Care Report Name: JODY LUAA Room #: PRE ER M.R.#: [id number] Admission: Attend Phys: Discharge: Date of : [birth year] Report #: [id number] (which may be displayed differently). It is designed to provide pertinent information for the following purposes: continuity of care, clinical quality, and state data reporting. The complete legal record is available to ED staff and administrators of the receiving hospital in [employer]'s Patient Tracker. All data is provided "as is."
[2021-12-03] MEDS ORDERED: TOPROL XL50 MG PO (09:14)
[2021-12-03] MEDS ORDERED: NEURONTIN 300M300 M2 PO (09:14)
[2021-12-03 09:44] LABS: ABSOLUTE NEUTROPHILS 4.6 thou/uL (1.4-8.2); BASOPHILS 1.6 % (0.0-2.0); EOSINOPHILS 2.2 % (0.0-3.0); HEMATOCRIT 33.2 % (42.0-52.0); HEMOGLOBIN 11.6 gm/dL (14.0-18.0); LYMPHOCYTES 20.5 % (24.0-44.0); MCH 32.5 pg (26.0-34.0); MCHC 34.9 g/dL (28.0-37.0); MCV 93.3 fL (80.0-100.0); MONOCYTES 10.7 % (1.0-8.0); PLATELET COUNT 204 thou/uL (150-400); RBC 3.56 mil/uL (4.50-6.00); RDW 16.2 % (10.5-14.5); WBC 7.1 thou/uL (4.0-11.0)
[2021-12-03 09:51] LABS: CALCIUM 8.5 mg/dL (8.5-10.1); CREATININE 0.8 mg/dL (0.7-1.3); POTASSIUM 3.1 mmol/L (3.5-5.1)
[2021-12-03] MEDS ORDERED: NORVASC10 MG PO (11:02)
[2021-12-03] MEDS ORDERED: CHLORDIAZEPOXID25 M1 PO (11:25)
[2021-12-03 11:27] VITALS: BP 166/112
--- NOTE | 2021-12-03 13:52 | EKG ---
[address] [address] [facility] [address] [place] [address] ELECTROCARDIOGRAM REPORT Name: ALEXANDRU LUA Room #: DEP LUPE Hicks#: [id number] Admission: 12/03/21 Attend Phys: Discharge: 12/03/21 Date of : [birth year] Report #: [id number] [facility] ED Test Date: 2021-12-03 Test Time: 10:10:35 Pat Name: ALEXANDRU LUA Department: Room: Gender: M Statistics Teacher: GUME : 1995 Requested By: Peter Ozuna Order Number: [id number] MD: Omkar Rajput Measurements Intervals [place] Rate: 82 P: 18 CO: 169 QRS: -17 QRSD: 89 T: 46 QT: 390 QTc: 456 Interpretive Statements Sinus rhythm Borderline left axis deviation Compared to ECG 08/01/2021 20:51:53 Intraventricular conduction delay no longer present Electronically Signed On 12-03-2021 13:52:41 COMMUNICATIONS SCIENTIST by Omkar Rajput [email or web address] <ELECTRONICALLY SIGNED> By: Omkar Rajput MD, [facility] 12/03/21 1352 1010 1010 Omkar Rajput MD, FACC /EPI
== END 2021-12-03 11:43 | disposition home or self-care (01) ==
LOC: ER 09:08
PROVIDERS: Emergency Medicine
DX: I10 Essential (primary) hypertension (principal); E87.6 Hypokalemia; F17.210 Nicotine dependence, cigarettes, uncomplicated; Z98.890 Other specified postprocedural states